=== PATIENT | female | born 1970 | race Caucasian/White ===

== ENCOUNTER 2019-06-12 22:47 | Emergency (ER) | payer OTHER, MEDICAID ==
[2019-06-13] MEDS: METHYLPREDNISOLONE 125 MG INJ IM (00:25)
== END 2019-06-13 00:39 | disposition home or self-care (01) ==
LOC: FTE 22:47
DX: H66.003 Acute suppurative otitis media without spontaneous rupture of ear drum, bilateral (principal); Z87.891 Personal history of nicotine dependence
CPT/HCPCS: 96372; 99284-25